=== PATIENT | male | born 1955 | race Hispanic/Latino ===

== ENCOUNTER 2017-02-25 11:42 | Day surgery (SDC) | payer MEDICAID ==
[2017-02-18 12:14] LABS: Basophils % (Auto) 0.7 % (0.0-1.8); Eosinophils % (Auto) 1.9 % (0.0-4.3); Hematocrit 43.4 % (35.5-45.6); Hemoglobin 14.2 gm/dl (11.8-15.2); Mean Corpuscular HGB Conc 33 % (32-34); Mean Corpuscular Hemoglobin 31 pg (28-32); Mean Corpuscular Volume 94 fl (84-94); Platelet Count 209 K/mm3 (140-440); Red Blood Count 4.64 M/mm3 (3.65-5.03); Red Cell Distribution Width 13.4 % (13.2-15.2); White Blood Count 7.8 K/mm3 (4.5-11.0)
[2017-02-18 12:32] LABS: Alanine Aminotransferase 35 units/L (7-56); Albumin/Globulin Ratio 1.1 %; Alkaline Phosphatase 64 units/L (35-129); Anion Gap 18 mmol/L; BUN/Creatinine Ratio 8.57; Blood Urea Nitrogen 6 mg/dL (9-20); Calcium 9.4 mg/dL (8.4-10.2); Carbon Dioxide 27 mmol/L (22-30); Chloride 100.4 mmol/L (98-107); Glucose 84 mg/dL (75-100); Potassium 4.1 mmol/L (3.6-5.0); Sodium 141 mmol/L (137-145); Total Protein 7.5 g/dL (6.3-8.2)
--- NOTE | 2017-02-18 12:32 | Anesthesia Consultation ---
Anesthesia Consult and Med Hx Date of service: 02/25/17 - Airway Anesthetic Teeth Evaluation: Edentulous ROM Head & Neck: Adequate Mental/Hyoid Distance: Adequate Mallampati Class: Class II Intubation Access Assessment: Probably Good - Pulmonary Exam CTA: Yes - Cardiac Exam Cardiac Exam: RRR - Pre-Operative Health Status ASA Pre-Surgery Classification: ASA3 Proposed Anesthetic Plan: General - Pulmonary Hx Smoking: Yes (1 1/2PPD-X 45 YRS, now 2-3 cigs/day) Hx Sleep Apnea: No (ABAD PRE SCREEN LOW RISK.) - Cardiovascular System Hx Hypertension: No - Central Nervous System Hx Seizures: No CVA: No Hx Back Pain: Yes Hx Psychiatric Problems: Yes (ANXIETY, DEPRESSION) - Gastrointestinal Hx Gastroesophageal Reflux Disease: Yes - Endocrine Hx Renal Disease: No Hx Liver Disease: Yes (HEP C) - Hematic Hx Anemia: No - Other Systems Hx Substance Use: Yes (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
[~2017-02-25 11:42] MED LIST: ANCEF/STERILE WATER 2 GM/20 ML 2 GM/20 ML SYRINGE IV NR; NACL 0.9% 1000 ML 1,000 ML IV SCH; PEPCID PO NR; VERSED IV NR
[2017-02-25] MEDS ORDERED: ANCEF/STERILE WATER 2 GM/20 ML 2 GM/20 ML SYRINGE IV NR (13:00)
[2017-02-25] MEDS ORDERED: ZOFRAN IV PRN (13:07)
[2017-02-25] MEDS ORDERED: SUBLIMAZE ONE (13:30)
[2017-02-25] MEDS ORDERED: XYLOCAINE MPF 2% ONE (13:31)
[2017-02-25] MEDS ORDERED: ZOFRAN ONE (13:31)
[2017-02-25] MEDS ORDERED: DECADRON ONE (13:31)
[2017-02-25] MEDS ORDERED: DIPRIVAN 10 MG/ML IV ONE ×2 (13:31→15:36)
--- NOTE | 2017-02-25 13:31 | Post Operative Note ---
Date of procedure: 02/25/17 Pre-op diagnosis: bladder tomor //heme Post-op diagnosis: same Findings: as above Procedure: cysto rpgs turbt Anesthesia: GETA Surgeon: REHANA GALEANO Estimated blood loss: minimal Pathology: list (bt) Specimen disposition: to lab Condition: stable Disposition: PACU
--- NOTE | 2017-02-25 13:32 | Discharge Summary ---
Short Stay Discharge Plan Activity: other (no straining ) Weight Bearing Status: Full Weight Bearing Diet: regular, low cholesterol Special Instructions: other (inc fluids ) Durable Medical Equipment Needed Upon Discharge: other (teach salazar care .. j stent ) Follow up with: MANUEL MAHAJAN MD [Primary Care Provider] - 7 Days REHANA GALEANO MD [Staff Physician] - 7 Days
[2017-02-25] MEDS ORDERED: SORBITOL-MANNITOL IRRIG IR ONE (14:03)
[2017-02-25] MEDS ORDERED: OMNIPAQUE 300 MG/50 ML (CATH LAB) IV ONE (14:06)
[2017-02-25] MEDS ORDERED: METHYLENE BLUE ONE (14:14)
[2017-02-25] MEDS ORDERED: WATER FOR IRRIG STERILE IR ONE (14:15)
[2017-02-25] MEDS ORDERED: METHYLENE BLUE IV ONE (14:30)
[2017-02-25] MEDS ORDERED: GARAMYCIN/NS 120MG/100ML 120 MG/100 ML BAG IV ONE (14:40)
[2017-02-25] MEDS: DILAUDID IV PRN ×4 (15:05→15:35)
[2017-02-25] MEDS ORDERED: ANCEF ONE ×2 (15:42)
--- NOTE | 2017-02-25 16:23 | Ultrasound Report ---
Ultrasound guidance for intraoperative prostate biopsy. Procedure: The procedure was performed by doctors results. Please refer to his operative notes.
--- NOTE | 2017-02-25 17:10 | Post Anesthesia Evaluation ---
- Post Anesthesia Evaluation Patient Participated: Yes Airway Patent: Yes Stable Respiratory Function: Yes Nausea/Vomiting: No Temp > 96.8F: Yes Pain Manageable: Yes Adequeate Hydration: Yes Anesthesia Complications: No Block Receding Appropriately: Not Applicable Patient on Ventilator: No
[2017-02-25 18:31] VITALS: BP 143/75
--- NOTE | 2017-02-26 08:19 | Fluoroscopy Report ---
TEN FLUOROSCOPIC IMAGES AT BILATERAL RETROGRADE PYELOGRAM: 02/25/17 CLINICAL: Bladder tumor. COMPARISON: None. FINDINGS: Baton Twirler images are unremarkable. Subsequent images demonstrate opacification of abnormal bilateral intrarenal collection systems and ureters. For more detail, please refer to the operative report.
--- NOTE | 2017-03-02 09:08 | Post Operative Note ---
Pre-op diagnosis: bladder cancer Post-op diagnosis: same Findings: Prominent lesion over the left orifice Procedure: Cystoscopy transurethral resection of bladder tumor retrogrades Operative note Preoperative diagnosis bladder cancer Postoperative diagnosis the same procedure cystoscopy transurethral resection of bladder tumor retrogrades surgeon Dr. Wright Anesthesia Gen. Findings as above Procedure Patient was brought to the operating room placed on the operating table. Following induction of general anesthesia placed in the lithotomy position prepped and draped in the usual sterile fashion At this point the cystoscope was inserted and there was clearly a tumor over the left orifice. There was bilobar hypertrophy of the prostate. The bladder was 1+ trabeculated. At this point retrograde on the on both sides were unremarkable. Latter lesions other than the one over the left orifice partially covering the opening The resectoscope was inserted under direct vision using the visual obturator the tumor was resected in total down to muscular fibers. This was sent as a specimen. Cytology was sent as well. The tumor was well resected we gave the patient below and we had E flux. Patient tolerated procedure well minimal blood loss Berger catheter was inserted he'll be going home with the catheter. Instructions given. And await final pathology will need close monitoring. Anesthesia: GETA Surgeon: REHANA WRIGHT Estimated blood loss: minimal Pathology: list (bladder) Condition: stable Disposition: PACU
== END 2017-02-25 17:35 | disposition home or self-care (01) ==
LOC: OR 11:42
PROVIDERS: ATTEND Urology
DX: C67.9 Malignant neoplasm of bladder, unspecified (principal); C61 Malignant neoplasm of prostate; N32.89 Other specified disorders of bladder; F17.210 Nicotine dependence, cigarettes, uncomplicated; F41.9 Anxiety disorder, unspecified; F32.9 Major depressive disorder, single episode, unspecified; K21.9 Gastro-esophageal reflux disease without esophagitis; I10 Essential (primary) hypertension; Z86.19 Personal history of other infectious and parasitic diseases; Z98.890 Other specified postprocedural states; Z79.899 Other long term (current) drug therapy; Z80.52 Family history of malignant neoplasm of bladder; Z82.49 Family history of ischemic heart disease and other diseases of the circulatory system
CPT/HCPCS: 36415; 52234; 74420; 76998; 80053; 85025; 88112; 88305; J0690; J1100; J1170; J1580; J2250; J2405; J2704; J3010; J7030; Q9967; Q9968